=== PATIENT | male | born 1960 | race Hispanic/Latino ===

== ENCOUNTER 2024-11-19 14:15 | Emergency (ER) | payer OTHER ==
[2024-11-19] MEDS ORDERED: ALBUTEROL 2.5 MG/3 ML NEB SOL ONE (15:01)
[2024-11-19] MEDS ORDERED: IPRATROPIUM BROM 0.5MG/2.5ML ONE (15:01)
[2024-11-19] MEDS ORDERED: dexAMETHasone 10 MG/ML VIAL ONE (15:02)
[2024-11-19 15:17] LABS: SARS-CoV-2 Antigen CONTROL BLUE LINE VIS/BG OK; SARS-CoV-2 Antigen Rapid Res Negative (Negative)
--- NOTE | 2024-11-19 15:31 | EDPHYS ---
Physician Documentation [facility] Name: James Vogel Age: 64 yrs Sex: Male : 1960 Arrival Date: 11/19/2024 Time: 14:15 Bed 18 Private MD: ED Physician James Morrison HPI: 11/19 16:58 This 64 yrs old Male presents to ER via Ambulatory with complaints of Cough - dr5 pain when swallowing. 16:58 The patient presents with sore throat. Onset: The symptoms/episode began/occurred 2 dr5 day(s) ago. Associated signs and symptoms: Pertinent positives: chills, cough, Sore throat. Patient is a 64-year-old male with history of anxiety and hypertension coming in with 2 days of cough, fever, congestion. Patient denies any sick contacts. Patient also reports body aches and sore throat. Patient denies chest pain, shortness of breath, nausea vomiting diarrhea, or abdominal pain. Historical: - Allergies: 14:31 No Known Allergies; ap3 - Home Meds: 14:31 Propranolol Oral [Active]; ap3 - PMHx: 14:31 Hypertensive disorder; Anxiety; ap3 - Immunization history:: Client reports receiving the 2nd dose of the Covid vaccine. - Infectious Disease History:: Denies. - Social history:: Smoking status: Patient denies any tobacco usage or history of. ROS: 16:58 Constitutional: as per hpi dr5 Exam: 16:58 Constitutional: This is a well developed, well nourished patient who is awake, alert, dr5 and in no acute distress. Head/Face: Normocephalic, atraumatic. Eyes: Pupils equal round and reactive to light, extra-ocular motions intact. Lids and lashes normal. Conjunctiva and sclera are non-icteric and not injected. Cornea within normal limits. Periorbital areas with no swelling, redness, or edema. Neck: Trachea midline, no thyromegaly or masses palpated, and no cervical lymphadenopathy. Supple, full range of motion without nuchal rigidity, or vertebral point tenderness. No Meningismus. Chest/axilla: Normal chest wall appearance and motion. Nontender with no deformity. No lesions are appreciated. Cardiovascular: Regular rate and rhythm with a normal S1 and S2. Normal PMI, no JVD. No pulse deficits. 16:58 Abdomen/GI: Soft, non-tender, non-distended Skin: Warm, dry with normal turgor. Normal color with no rashes, no lesions, and no evidence of cellulitis. MS/ Extremity: Pulses equal, no cyanosis. Neurovascular intact. Full, normal range of motion. Neuro: Awake and alert, GCS 15, oriented to person, place, time, and situation. Cranial nerves II-XII grossly intact. Motor strength 5/5 in all extremities. Sensory grossly intact. Cerebellar exam normal. Normal gait. 16:58 Respiratory: the patient does not display signs of respiratory distress, Respirations: normal, Breath sounds: wheezing: expiratory is heard diffusely, Respiratory rate: 20 Vital Signs: 14:28 BP 125 / 78; Pulse 66; Resp 17; Temp 98(O); Pulse Ox 97% on R/A; Weight 104.33 kg; ap3 Height 5 ft. 10 in. ; Pain 6/10; 15:42 BP 122 / 78; Pulse 78; Resp 20; Temp 98.2; Pulse Ox 100% ; kj2 14:28 Body Mass Index 33.00 (104.33 kg, 177.8 cm) ap3 14:28 Pain Scale: Adult ap3 MDM: 14:38 Medical Screening Exam initiated dr5 16:58 Differential diagnosis: Allergic rhinitis, influenza, pharyngitis, tonsillitis, upper dr5 respiratory infection. Data reviewed: vital signs, nurses notes. Data reviewed: lab test result(s), Flu: positive. I considered the following discharge prescriptions or medication management in the emergency department Medications were administered in the Emergency Department. See MAR. Care significantly affected by the following Social Determinants of Health: Poor access to healthcare and/or lack of insurance, Poor access to transportation, Problems related to employment. Counseling: I had a detailed discussion with the patient and/or guardian regarding the historical points, exam findings, and any diagnostic results supporting the discharge/admit diagnosis, the presence of at least one elevated blood pressure reading (>120/80) during this emergency department visit, lab results. Counseling: I had a detailed discussion with the patient and/or guardian regarding the need for outpatient follow up, for definitive care, a family practitioner, to return to the emergency department if symptoms worsen or persist or if there are any questions or concerns that arise at home. Medication response: albuterol nebulizer treatment(s) relieved the patient's symptoms. The patient is no longer wheezing. Response to treatment: the patient's symptoms have resolved after treatment. ED course: Patient found to be positive for flu B. 10 mg of dexamethasone IM given with Medrol Dosepak given to start tomorrow. Tamiflu prescribed with benzonatate to help with flulike symptoms. Recommended alternating Tylenol and Motrin as needed for fever and pain every 3 hours. Recommended increasing hydration. Follow-up with primary care doctor as needed. Quarantine for 48 to 72 hours. All questions answered. Patient is feeling much better on discharge.. 11/19 14:43 Order name: SARS RAPID; Complete Time: 15:20 [facility] 11/19 14:43 Order name: Influenza Screen (a \T\ B); Complete Time: 15:20 [facility] 11/19 14:43 Order name: Strep [facility] 11/19 15:21 Order name: Throat Culture EDMS Administered Medications: 15:14 Drug: Dexamethasone IM 10 mg IM once Route: IM; Site: left deltoid; kj2 15:42 Follow up: Response: No adverse reaction kj2 15:14 Drug: DuoNeb Nebulize (3:1) (2.5 mg - 0.5 mg) 3 ml Nebulizer once Route: Nebulizer; kj2 15:42 Follow up: Response: No adverse reaction kj2 Disposition Summary: 11/19/24 15:30 Discharge Ordered Notes: Location: Home dr5 Condition: Stable dr5 Diagnosis - Influenza due to other identified influenza virus with other respiratory dr5 manifestations Followup: dr5 - With: Emergency Department - When: As needed - Reason: Worsening of condition Followup: dr5 - With: Private Physician - When: 1 - 2 days - Reason: Recheck today's complaints, Continuance of care, Re-evaluation by your physician Discharge Instructions: - Discharge Summary Sheet dr5 - Influenza, Adult dr5 Forms: - Work release form dr5 - Medication Reconciliation Form dr5 - Patient Portal Instructions dr5 - Leadership Thank You Letter dr5 Prescriptions: - Medrol (Jerry) 4 mg Oral Tablets, Dose Pack - take 1 tablet ORAL route as directed - follow package instructions; 1 packet; dr5 Refills: 0, Product Selection Permitted - benzonatate 100 mg Oral capsule - take 1 capsule ORAL route 3 times per day for 7 days; 20 capsule; Refills: 0, dr5 Product Selection Permitted - Tamiflu 75 mg Oral capsule - take 1 tablet ORAL route every 12 hours for 5 days; 10 tablet; Refills: 0, dr5 Product Selection Permitted Addendum: 11/22/2024 07:32 Co-signature as Attending Physician, James Morrison MD I agree with the assessment and c castaneda plan of care. Signatures: Dispatcher [employer] [facility] James Morrison MD MD cha Prokisch, Amanda RN RN ap3 Stacey Bernal RN RN kj2 Franco Hyatt, SHOW CARD LETTERER-C SHOW CARD LETTERER-[facility]5 Corrections: (The following items were deleted from the chart) 11/19 14:32 14:31 Allergies: Aspirin; ap3 ap3
--- NOTE | 2024-11-19 15:31 | ER ---
Nurse's Notes [facility] Name: James Vogel Age: 64 yrs Sex: Male : 1960 Arrival Date: 11/19/2024 Time: 14:15 Bed 18 Private MD: Diagnosis: Influenza due to other identified influenza virus with other respiratory manifestations Presentation: 11/19 14:28 Chief complaint: Patient states: he has had cough and congestion for a few days. ap3 patient reports painful swallowing. Coronavirus screen: At this time, the client does not indicate any symptoms associated with coronavirus-19. Ebola Screen: No symptoms or risks identified at this time. Initial Sepsis Screen: Does the patient meet any 2 criteria? No. Patient's initial sepsis screen is negative. Does the patient have a suspected source of infection? No. Patient's initial sepsis screen is negative. Risk Assessment: Do you want to hurt yourself or someone else? Patient reports no desire to harm self or others. Onset of symptoms was November 15, 2023. 14:28 Method Of Arrival: Ambulatory ap3 14:28 Acuity: HENOK 3 ap3 Triage Assessment: 14:32 General: Appears in no apparent distress. Behavior is calm, cooperative, appropriate ap3 for age. Pain: Complains of pain in throat Aggravated by swallowing. EENT: Reports difficulty swallowing pain when swallowing. Neuro: Level of Consciousness is awake, alert, obeys commands, Oriented to person, place, time, situation, Appropriate for age. Cardiovascular: Patient's skin is warm and dry. Respiratory: Reports cough that is productive, Airway is patent Respiratory effort is even, unlabored, Respiratory pattern is regular, symmetrical. Historical: - Allergies: 14:31 No Known Allergies; ap3 - Home Meds: 14:31 Propranolol Oral [Active]; ap3 - PMHx: 14:31 Hypertensive disorder; Anxiety; ap3 - Immunization history:: Client reports receiving the 2nd dose of the Covid vaccine. - Infectious Disease History:: Denies. - Social history:: Smoking status: Patient denies any tobacco usage or history of. Screenin:33 [facility] ED Fall Risk Assessment (Adult) History of falling in the last 3 months, ap3 including since admission No falls in past 3 months (0 pts) Confusion or Disorientation No (0 pts) Intoxicated or Sedated No (0 pts) Impaired Gait No (0 pts) Mobility Assist Device Used No (0 pt) Altered Elimination No (0 pt) Score/Fall Risk Level 0 - 2 = Low Risk Oriented to surroundings, Maintained a safe environment, Educated pt \T\ family on fall prevention, incl call for assistance when getting out of bed, Assessed \T\ reinforced patient's understanding of fall precautions, Hourly rounding (assess needs \T\ fall precautionary measures) done, Used ambulatory aids as needed (educated on \T\ assisted with), Used gait belt as appropriate. Abuse screen: Denies threats or abuse. Nutritional screening: No deficits noted. Tuberculosis screening: No symptoms or risk factors identified. Assessment: 14:35 General: Appears in no apparent distress. Behavior is calm, cooperative. Pain: kj2 Complains of pain in throat Pain currently is 6 out of 10 on a pain scale. Neuro: Level of Consciousness is awake, alert, obeys commands, Oriented to person, place, time, situation. Cardiovascular: Patient's skin is warm and dry. Respiratory: Airway is patent. GI: No signs and/or symptoms were reported involving the gastrointestinal system. : No signs and/or symptoms were reported regarding the genitourinary system. 15:42 Reassessment: Patient appears in no apparent distress at this time. Patient and/or kj2 family updated on plan of care and expected duration. Pain level reassessed. Patient is alert, oriented x 3, equal unlabored respirations, skin warm/dry/pink. Vital Signs: 14:28 BP 125 / 78; Pulse 66; Resp 17; Temp 98(O); Pulse Ox 97% on R/A; Weight 104.33 kg; ap3 Height 5 ft. 10 in. ; Pain 6/10; 15:42 BP 122 / 78; Pulse 78; Resp 20; Temp 98.2; Pulse Ox 100% ; kj2 14:28 Body Mass Index 33.00 (104.33 kg, 177.8 cm) ap3 14:28 Pain Scale: Adult ap3 ED Course: 14:23 Patient arrived in ED. ra3 14:30 Franco [facility]C [facility] dr[facility] 14:30 James Morrison MD is Attending Physician. dr5 14:30 Patient has correct armband on for positive identification. Bed in low position. Call kj2 light in reach. Provided Education on: call light. 14:31 Triage completed. ap3 14:33 Arm band placed on right wrist. ap3 14:50 Stacey Bernal, RN is Primary Nurse. kj2 15:43 No provider procedures requiring assistance completed. Patient did not have IV access kj2 during this emergency room visit. Administered Medications: 15:14 Drug: Dexamethasone IM 10 mg IM once Route: IM; Site: left deltoid; kj2 15:42 Follow up: Response: No adverse reaction kj2 15:14 Drug: DuoNeb Nebulize (3:1) (2.5 mg - 0.5 mg) 3 ml Nebulizer once Route: Nebulizer; kj2 15:42 Follow up: Response: No adverse reaction kj2 Medication: 14:54 VIS not applicable for this client. kj2 Outcome: 15:30 Discharge ordered by . dr5 15:43 Discharged to home ambulatory, kj2 15:43 Condition: stable 15:43 Discharge instructions given to patient, Instructed on discharge instructions, follow up and referral plans. medication usage, Demonstrated understanding of instructions, follow-up care, medications, Prescriptions given X 3, 15:43 Patient left the ED. kj2 Signatures: Allegra Nixon, RN RN ap3 Venus Frankel ra3 Stacey Bernal, ERASMO RN kj2 Franco Hyatt, REQUIREMENTS ANALYST-C REQUIREMENTS ANALYST-Cdr5 Corrections: (The following items were deleted from the chart) 14:32 14:31 Allergies: Aspirin; ap3 ap3
[2024-11-19 16:24] VITALS: BP 122/78; TEMP 98.2; O2SAT 100
== END 2024-11-19 15:43 | disposition home or self-care (01) ==
LOC: ER 14:15
DX: J09.X2 Influenza due to identified novel influenza A virus with other respiratory manifestations (principal); I10 Essential (primary) hypertension; Z11.52 Encounter for screening for COVID-19
CPT/HCPCS: 87070; 36415; 87081; 87804 ×2; 96372; 99284; 87811; J7613; J7644; J1100